=== PATIENT | female | born 1985 | race African-American/Black ===

== ENCOUNTER 2017-05-25 18:33 | Emergency (ER) | payer MEDICAID, OTHER ==
[~2017-05-25] VITALS: Ht 162.6 cm; Wt 61.0 kg
[~2017-05-25 18:33] MED LIST: LOESTRIN 24 FE
[2017-05-25] MEDS ORDERED: NAPROXEN 500MG TABLET PO ONE (21:30)
[2017-05-25 22:30] VITALS: BP 120/75
== END 2017-05-25 23:07 | disposition home or self-care (01) ==
LOC: ER 21:53
DX: S93.402A Sprain of unspecified ligament of left ankle, initial encounter (principal); W18.39XA Other fall on same level, initial encounter; Y93.68 Activity, volleyball (beach) (court); Y92.89 Other specified places as the place of occurrence of the external cause; I10 Essential (primary) hypertension; Z98.890 Other specified postprocedural states
CPT/HCPCS: 99282

== ENCOUNTER 2020-10-15 10:02 | Emergency (ER) | payer OTHER ==
[~2020-10-15] VITALS: Ht 172.7 cm; Wt 70.0 kg
[2020-10-15] MEDS ORDERED: ACETAMINOPHEN 325MG TABLET PO STA (10:20)
[2020-10-15] MEDS ORDERED: SODIUM CHLORIDE 0.9% 1,000 ML IV ONE (10:30)
[2020-10-15 11:20] LABS: BASOPHILS % 0.2 % (0.0-2.0); HEMATOCRIT. 37.6 % (36.0-48.0); HEMOGLOBIN. 12.9 g/dL (12.0-16.0); LYMPHOCYTES % 22.4 % (20.0-50.0); MEAN CORPUSCULAR HEMOGLOBIN 32.4 pg (28.0-32.0); MEAN CORPUSCULAR VOLUME 94.4 fL (81.0-99.0); MEAN PLATELET VOLUME 8.5 fl (7.4-10.4); MONOCYTES % 9.6 % (2.0-8.0); NEUTROPHILS % 67.8 % (40.0-76.0); PLATELET 206 x1000/uL (130-400); RED BLOOD CELL COUNT 3.99 mill/uL (4.2-5.4); RED CELL DISTRIBUTION WIDTH 12.3 % (11.6-14.6)
[2020-10-15 11:27] LABS: CHLORIDE 106 mEq/L (98-107)
[2020-10-15 11:42] LABS: HCG SCREEN NEGATIVE
[2020-10-15] MEDS ORDERED: POTASSIUM CHLORIDE 20MEQ TABLET SR PO ONE (11:45)
[2020-10-15 12:36] LABS: CLARITY URINE TURBID (CLEAR); COLOR URINE DARK YELLOW (YELLOW); KETONES URINE TRACE (NEGATIVE); LEUKOCYTE ESTERASE URINE NEGATIVE (NEGATIVE); NITRITE URINE POSITIVE (NEGATIVE); OCCULT BLOOD URINE NEGATIVE (NEGATIVE); PH URINE 5.5 (4.5-8.0); PROTEIN URINE 1+ (NEGATIVE); SPECIFIC GRAVITY URINE 1.036 (1.005-1.030)
[2020-10-15] MEDS ORDERED: CEFTRIAXONE 1 G PREMIX 50 ML IV ONE (12:45)
[2020-10-15 13:50] VITALS: BP 112/60
== END 2020-10-15 13:52 | disposition home or self-care (01) ==
LOC: ER 10:02
DX: U07.1 COVID-19 (principal); N39.0 Urinary tract infection, site not specified; F17.200 Nicotine dependence, unspecified, uncomplicated
CPT/HCPCS: 36415; 71045; 80053; 81003; 81025; 83605; 84145; 84703; 85025; 87040; 87086; 87635; 93005; 96361; 96365; 99285; C9803; J0696; J7030

== ENCOUNTER 2020-10-20 14:51 | Emergency (ER) | payer OTHER ==
[~2020-10-20] VITALS: Ht 154.9 cm; Wt 75.0 kg
[2020-10-20 17:00] VITALS: BP 110/70
== END 2020-10-20 17:07 | disposition home or self-care (01) ==
LOC: ER 14:51
DX: U07.1 COVID-19 (principal); R06.00 Dyspnea, unspecified
CPT/HCPCS: 71045; 93005; 99283

== ENCOUNTER 2023-12-01 23:53 | Emergency (ER) | payer MEDICAID, OTHER ==
[~2023-12-01 23:53] MED LIST changes: +ALBU6.7H3 INH; +AMOX-424 MT; +GUAI600T26 MT; +OXYM30SP26 BOTHNSTRLS; +P50 MT
[2023-12-02 00:14] VITALS: PULSE 130
== END 2023-12-02 00:45 | disposition left against medical advice (07) ==
LOC: ER 23:53
DX: R07.89 Other chest pain (principal); Z53.21 Procedure and treatment not carried out due to patient leaving prior to being seen by health care provider
CPT/HCPCS: 99281